=== PATIENT | female | born 1995 | race Caucasian/White ===

== ENCOUNTER 2016-08-21 20:49 | Emergency (ER) | payer BC, OTHER ==
--- NOTE | 2016-08-21 21:43 | EDPHY ---
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 [facility] - Personal History LMP (Females 10-55): 8-14 Days Ago Current Tetanus/Diphtheria Vaccine: Unsure - Medical/Surgical History Hx Asthma: No Hx Chronic Respiratory Disease: No Hx Diabetes: No Hx Cardiac Disease: No Hx Renal Disease: No Hx Cirrhosis: No Hx Alcoholism: No Hx HIV/AIDS: No Hx Splenectomy or Spleen Trauma: No Other PMH: left hand surgery, bipolar d/o - Social History Smoking Status: Never smoked Time Seen by Provider: 08/21/16 21:42 Constitutional: Initial Vital Signs Temperature (C) 36.9 C 08/21/16 20:53 Heart Rate 94 08/21/16 20:53 Respiratory Rate 18 08/21/16 20:53 Blood Pressure 113/75 08/21/16 20:53 O2 Sat (%) 96 08/21/16 20:53 O2 Delivery Mode Room Air Allergies/Adverse Reactions: No Known Allergies Allergy (Unverified 10/26/14 15:47) Home Medications: Medication Instructions Recorded Norethindrone-E.estradiol-Iron 1 each PO DAILY 10/26/14 [[place] [employer] FE 1-20 TABLET] [place] Carbonate 08/21/16 Medical Decision Making - Diagnostics Imaging Results: Imaging Impressions Abdomen CT 08/21/16 21:51 Impression: Negative. I telephoned results to Dr. Nikki Mata at 2258 hours. ED Course/Re-evaluation: CHIEF COMPLAINT: Abdominal pain HISTORY OF PRESENT ILLNESS: 20-year-old female who was sparring in [facility] She was kneed in the right upper quadrant area and epigastric area. She had immediate pain there. The pain is over the lower ribs on the right and over her liver epigastric area. She denies loss of consciousness she denies any other symptoms she denies nausea vomiting. REVIEW OF SYSTEMS: A 10 point review of systems was performed and is negative with the exception of the elements mentioned in the history of present illness. PHYSICAL EXAM: HR, BP, O2 Sat, RR. Temp noted General Appearance: Alert, well hydrated, appropriate, and non-toxic appearing. Head: Atraumatic without scalp tenderness or obvious injury Eyes: Pupils equal, round, reactive to light and accommodation, EOMI, no trauma , no injection. Ears: Clear bilaterally, no perforation, normal landmarks Nose: Atraumatic, no rhinorrhea, clear. Throat: There is no erythema or exudates, no lesions, normal tonsils, mucus membranes moist. Neck: Supple, 2+ carotid upstroke, nontender, no lymphadenopathy. Respiratory: No retractions, no distress, no wheezes, and no accessory muscle use. Lungs are clear to auscultation bilaterally. Cardiovascular: Regular rate and rhythm, no murmurs, rubs, or gallops. Bilateral carotid, radial, dorsalis pedis, and posterior tibial pulses intact. Good capillary refill all extremities. Gastrointestinal: Abdomen is soft, tenderness in the right upper quadrant and lower ribs, non-distended, no masses, no rebound, no guarding, no peritoneal signs. Musculoskeletal: Normal active ROM of all extremities, atraumatic. Neurological: Alert, appropriate, and interactive. The patient has normal DTRs and non-focal cranial nerves, motor, sensory, and cerebellar exam. Skin: No rashes, good turgor, no nodules on palpation. Past medical history: Patient denies Past surgical history: None Family history: Noncontributory Social history: Single, employed, does not abuse tobacco drugs or alcohol DIAGNOSTICS/PROCEDURES/CRITICAL CARE TIME: Study: CT of the abdomen and pelvis with IV contrast Indication: abdominal trauma Results: CT scan of the abdomen and pelvis was obtained. The results of the study are: DIFFERENTIAL DIAGNOSIS: The differential diagnosis for the patient's trauma included but was not limited to intracranial injury, long bone and pelvic bone fractures, spinal injury, intra-abdominal injury, and intra-thoracic injury. MEDICAL DECISION MAKING: This patient is hemodynamically stable however she has right upper quadrant and epigastric pain after being kneed while sparring. I-STAT and abdominal CT scan are pending. (Deejay Dc) 11:10 p.m.- I received sign-out on this patient from Dr. Dc. She was stable during her time in the emergency room. CT scan of her abdomen and pelvis were obtained with IV contrast which demonstrated no traumatic injuries identified. I discussed this with the patient. I have reexamined her and she is minimally tender in her right upper quadrant. I have instructed her to use ice, ibuprofen , Tylenol as needed for pain and to return to the emergency room if she is worse in any way. She is in agreement with this plan. (Nikki Mata) - Data Points Laboratory Results: 08/21/16 21:47 POC Hgb 12.9 gm/dL gm/dL (12.6-16.3) POC Hct 38 % % (38-47) POC Sodium 141 mEq/L mEq/L (134-144) POC Potassium 3.7 mEq/L mEq/L (3.3-5.0) POC Chloride 104 mEq/L mEq/L (97-110) POC BUN 15 mg/dL mg/dL (7-23) POC Creatinine 1.3 mg/dL H mg/dL (0.6-1.0) POC Glucose 82 mg/dL mg/dL (70-100) Point of Care Test Results: 08/21/16 21:47 POC Sodium 141 POC Potassium 3.7 POC Chloride 104 POC BUN 15 POC Creatinine 1.3 H POC Glucose 82 Departure - Departure Disposition: Home, Routine, Self-Care Clinical Impression: RUQ pain Abdominal trauma Qualifiers: Encounter type: initial encounter Qualified Code(s): S39.91XA - Unspecified injury of abdomen, initial encounter Condition: Good Instructions: Blunt Abdominal Injury (ED) Additional Instructions: You can use ibuprofen or Tylenol as needed for pain. Use ice packs as well. Return to the emergency room if your worse in any way. Referrals: SHANKAR Brush,. [Clinic] - As per Instructions
[2016-08-21] MEDS ORDERED: IOPAMIDOL (ISOVUE-300) 100 ML BTL ONE (22:04)
[2016-08-21 23:27] VITALS: BP 120/76; PULSE 74; RESP 16; TEMP 98.1; O2SAT 95
== END 2016-08-21 23:27 | disposition home or self-care (01) ==
DX: S39.91XA Unspecified injury of abdomen, initial encounter (principal); X58.XXXA Exposure to other specified factors, initial encounter
CPT/HCPCS: 82947-QW; Q9967